=== PATIENT | male | born 1950 | race Caucasian/White ===

== ENCOUNTER 2020-11-02 13:59 | Emergency (ER) | payer MEDICARE ==
[~2020-11-02] VITALS: Ht 172.7 cm; Wt 86.4 kg
[2020-11-02 14:27] VITALS: Ht 172.7 cm; Wt 86.4 kg
[2020-11-02 15:38] LABS: BASOPHILS 0.3 % (0-2); EOSINOPHILS 5.9 % (0-7); HEMATOCRIT 48.7 % (42.0-54.0); IMMATURE GRANULOCYTES 0.3 % (0-5); LYMPHOCYTE ABS# 1.67 10x3/uL (1.32-3.57); LYMPHOCYTES 26.6 % (15-50); MCH 32.2 pg (26.0-34.0); MCHC 34.9 g/dL (31.0-37.0); MCV 92.2 fL (80.0-100.0); MEAN PLATELET VOLUME 9.4 fL (7.4-10.4); MONOCYTES 9.9 % (2-11); NEUTROPHIL ABS# 3.59 10x3/uL (1.78-5.38); PLATELET COUNT 211 10x3/uL (130-400); RBC 5.28 10x6/uL (4.20-6.10); WBC 6.3 10x3/uL (4.8-10.8)
[2020-11-02 15:48] LABS: ANION GAP 13.3 mmol/L (8-16); CALCIUM 9.6 mg/dL (8.5-10.1); CARBON DIOXIDE 27.9 mmol/L (21.0-32.0); CREATININE - SERUM 1.1 mg/dL (0.6-1.3); POTASSIUM - SERUM 4.2 mmol/L (3.5-5.1)
[2020-11-02 15:54] LABS: ALBUMIN 4.3 g/dL (3.4-5.0); BILIRUBIN - TOTAL 0.71 mg/dL (0.2-1.3); PROTEIN - SERUM 7.4 g/dL (6.4-8.2)
[2020-11-02 15:55] LABS: INR 1.02 (0.85-1.17); PROTIME 12.3 SECONDS (11.6-15.0)
[2020-11-02] MEDS ORDERED: CLEOCIN HCL300 MG PO (16:44)
[2020-11-02] MEDS ORDERED: HYDROCODON-ACE1 EA10 PO (19:35)
[2020-11-02 20:15] VITALS: BP 133/88
--- NOTE | 2020-11-03 10:34 | PRO ---
PATIENT:LELAND MOREIRA MEDICAL RECORD: [id number] : 54 LOCATION:[facility] ADMISSION DATE: 11/02/20 PROCEDURE PERFORMED BY: BARBI DAVIS DO DATE OF PROCEDURE: 11/02/2020 PROCEDURE PERFORMED: Left middle, ring, and small finger complex laceration closure. PREOPERATIVE DIAGNOSIS: Complex laceration of the left small, ring, and middle fingers as well as the open fracture of the distal phalanx of the small finger, left hand. POSTOPERATIVE DIAGNOSIS: Complex laceration of the left small, ring, and middle fingers as well as the open fracture of the distal phalanx of the small finger, left hand. SURGEON: Barbi Davis DO INDICATIONS: Mr. Moreira is a 70-year-old male who was using a table saw and cutting a piece of wood and it kicked back he said and it went to his fingers. He was brought to the ER immediately. X-rays were taken. Standard distal phalanx fracture of the small finger and complex lacerations of the volar aspect of the small, ring, and middle fingers of the left hand. He was soaked in Betadine for over an hour. I then came and examined him and did digital blocks on each digit putting approximately 6 mL in each of the 3 fingers to numb them up. He tolerated that well. DESCRIPTION OF PROCEDURE: I then draped out the middle, ring, and small fingers of the left hand, after that had been soaked in Betadine for over an hour. I then used 4-0 Monocryl and carefully put together the complex lacerations on all 3 fingers distal tips as they were quite complex, securing them to the nail also. He tolerated this very well after being numbed up. I then cleaned him off with normal saline and dressed him with Adaptic, 4 x 4s, and tube gauze. He was informed he will be on oral antibiotics for about 10 days and would follow up with me in 1 week in clinic and leave the dressing on. TRANSINT:[id number] Voice Confirmation ID: [id number] DOCUMENT ID: [id number] BARBI DAVIS DO at 1034 CC: [id number] DICTATION DATE: 11/02/202020 [employer]XOPH[employer] PLAYER: 11/03/20 0716 DEP ER 11/02/20 [facility] [address] [facility] [place] [address]
== END 2020-11-02 20:17 | disposition home or self-care (01) ==
LOC: D.ER 13:59
PROVIDERS: Family Medicine
DX: S61.213A Laceration without foreign body of left middle finger without damage to nail, initial encounter (principal); S61.215A Laceration without foreign body of left ring finger without damage to nail, initial encounter; S61.217A Laceration without foreign body of left little finger without damage to nail, initial encounter; W45.8XXA Other foreign body or object entering through skin, initial encounter; Y93.9 Activity, unspecified; Y92.9 Unspecified place or not applicable; S62.637B Displaced fracture of distal phalanx of left little finger, initial encounter for open fracture